=== PATIENT | female | born 1990 | race Caucasian/White ===

== ENCOUNTER 2018-09-29 19:20 | Outpatient (CLI) | payer MEDICAID ==
[~2018-09-29] VITALS: Ht 172.7 cm; Wt 90.9 kg
[2018-09-29 20:00] VITALS: BP 136/65
[2018-09-29 20:11] LABS: MICROSCOPIC INDICATED
[2018-09-29 20:12] LABS: AMPHETAMINE SCREEN, URINE Negative (Negative); BARBITURATE SCREEN, URINE Negative (Negative); BENZODIAZEPINE SCREEN, URINE Negative (Negative); CANNABINOID SCREEN, URINE Negative (Negative); COCAINE SCREEN, URINE Negative (Negative); METHADONE SCREEN, URINE Negative (Negative); OPIATE SCREEN, URINE Negative (Negative)
[2018-09-29] MEDS ORDERED: PREN1TAB60 PO (20:12)
[2018-09-29] MEDS ORDERED: [UNRECOGNIZED DRUG - OTHER] (20:13)
[2018-09-29] MEDS ORDERED: subutex PO (20:13)
[2018-09-29] MEDS ORDERED: MICO1KIT10 VG (20:31)
== END 2018-09-29 20:36 | disposition home or self-care (01) ==
LOC: LDOP 19:20
PROVIDERS: ATTEND Obstetrics & Gynecology
DX: O42.913 Preterm premature rupture of membranes, unspecified as to length of time between rupture and onset of labor, third trimester (principal); Z3A.35 35 weeks gestation of pregnancy
CPT/HCPCS: 59025; 80307; 81001; 87086; 89060; 99201; G0463; Q0114